=== PATIENT | male | born 1950 | race Hispanic/Latino ===

== ENCOUNTER 2016-06-11 06:15 | Emergency (ER) | payer BC ==
[2016-06-11 07:22] LABS: Basophils % (Auto) 0.5 % (0.0-1.8); Hematocrit 43.9 % (35.5-45.6); Hemoglobin 14.5 gm/dl (11.8-15.2); Mean Corpuscular HGB Conc 33 % (32-34); Mean Corpuscular Hemoglobin 29 pg (28-32); Mean Corpuscular Volume 89 fl (84-94); Platelet Count 133 K/mm3 (140-440); Red Blood Count 4.97 M/mm3 (3.65-5.03); Red Cell Distribution Width 13.7 % (13.2-15.2); White Blood Count 8.2 K/mm3 (4.5-11.0)
[2016-06-11 07:40] LABS: Anion Gap 19 mmol/L; BUN/Creatinine Ratio 21.66; Blood Urea Nitrogen 26 mg/dL (9-20); Carbon Dioxide 25 mmol/L (22-30); Chloride 95.6 mmol/L (98-107); Glucose 109 mg/dL (75-100); Potassium 4.6 mmol/L (3.6-5.0); Sodium 135 mmol/L (137-145)
[2016-06-11 09:22] VITALS: BP 135/84
[2016-06-11] MEDS ORDERED: TESSALON PERLES PO ONE (10:16)
[2016-06-11] MEDS ORDERED: MUCINEX ER PO ONE (10:16)
[2016-06-11] MEDS ORDERED: DUONEB 0.5 MG-3 MG/3 ML SOLN IH ONE (10:16)
--- NOTE | 2016-06-11 10:39 | XRay Report ---
CHEST ONE VIEW INDICATION: Chest pain. COMPARISON: 06/02/2015. FINDINGS: Portable, single, frontal chest radiograph demonstrates less exaggerated/normal cardiomediastinal silhouette. Somewhat prominent bronchovascular markings centrally. Otherwise clear lungs. Unremarkable bones. CONCLUSION: No acute disease in the chest. Thank you for the opportunity to participate in this patient's care.
--- NOTE | 2016-06-11 10:40 | Emergency Department Report ---
HPI - General Chief Complaint: Chest Pain Time Seen by Provider: 06/11/16 10:12 - HPI HPI: The patient is a 66-year-old male who presents for evaluation of cough and ill FEELING. The patient reports progressive nonproductive cough for the past 2 days, associated with dyspnea for the past one day, severe, exacerbated with lying flat or exertion. The patient has also experienced mild to moderate generalized myalgias and arthralgias, sore aching in quality, also for the past one to 2 days. The patient denies fever, hemoptysis, syncope, pressure-like chest pain, stridor, drooling, dysphonia, hoarseness of voice, abdominal pain. ED Past Medical Hx - Past Medical History Hx Hypertension: Yes Hx Heart Attack/AMI: Yes (1985) Hx Arthritis: Yes (bilat knees) Additional medical history: high cholsesterol - Surgical History Past Surgical History?: Yes Additional Surgical History: Left knee surgery - Social History Smoking Status: Former Smoker Substance Use Type: None - Medications Home Medications: Home Medications Medication Instructions Recorded Confirmed Last Taken Type Aspirin [Adult Low Dose Aspirin EC] 81 mg PO QDAY 06/02/15 06/11/16 11/26/15 09: 00 History Benazepril HCl [Lotensin] 40 mg PO DAILY 06/02/15 06/11/16 11/30/15 05:30 History Ibuprofen [Motrin 200 MG tab] 800 mg PO QAM 06/02/15 06/11/16 11/26/15 09:00 History Lovastatin [Altoprev] 40 mg PO QPM 06/02/15 06/11/16 11/29/15 22:00 History Metoprolol Xl [Metoprolol 100 mg PO QDAY #30 tablet 06/03/15 06/11/16 11/30/15 05:30 Rx SUCCINATE ER TAB] Chlorthalidone 25 mg PO QDAY 07/06/15 06/11/16 11/29/15 22:00 History Flecainide Acetate 50 mg PO BID 07/06/15 06/11/16 11/29/15 22:00 History ALBUTEROL Inhaler [ProAir HFA 2 puff IH QID PRN #1 inhalation 06/11/16 Unknown Rx Inhaler] Ibuprofen [Motrin] 800 mg PO Q8HR PRN #14 tablet 06/11/16 Unknown Rx Oseltamivir [Tamiflu] 75 mg PO BID #10 cap 06/11/16 Unknown Rx Promethazine /Codeine 5 ml PO Q6H PRN #120 ml 06/11/16 Unknown Rx [Phenergan/Codeine 6.25-10 mg/5Ml] ED Review of Systems ROS: Stated complaint: COUGH/WHEEZING Other details as noted in HPI Constitutional: denies: fever ENT: denies: throat or neck pain Respiratory: reports cough, shortness of breath Cardiovascular: denies: chest pain Endocrine: denies unexplained weight loss or gain Gastrointestinal: denies: abdominal pain, nausea Genitourinary: denies: dysuria Musculoskeletal: denies: leg swelling Skin: denies: rash Neurological: denies: headache Hematological/Lymphatic: denies: easy bleeding or easy bruising Psych: denies sadness or hopelessness Physical Exam - Physical Exam Vital Signs: Vital Signs 06/11/16 06/11/16 06/11/16 06:41 09:21 10:01 Temperature 100.6 F H 98.6 F Pulse Rate 79 78 Pulse Rate [ Anterior Bilateral Throughout] Respiratory 20 20 20 Rate Respiratory Rate [Anterior Bilateral Throughout] Blood Pressure 144/100 135/84 [Right] O2 Sat by Pulse 97 96 Oximetry 06/11/16 10:33 Temperature Pulse Rate Pulse Rate [ 80 Anterior Bilateral Throughout] Respiratory Rate Respiratory 16 Rate [Anterior Bilateral Throughout] Blood Pressure [Right] O2 Sat by Pulse Oximetry Physical Exam: General: well-nourished, well-developed, no acute distress Head: Normocephalic, atraumatic Eyes: normal sclera ENT: Mucous membranes are pink and moist Neck: trachea midline, neck supple, No neck stiffness, no cervical adenopathy Respiratory: Mildly diminished end-expiratory breath sounds and wheezing present , no costal retractions, no respiratory distress Cardio: S1 and S2 present, no murmurs, rubs, gallops, capillary refill is brisk Abdomen: Normoactive bowel sounds, soft abdomen, no rigidity, no guarding or rebound tenderness Musc: No pitting edema Skin: No rash Neuro: no facial drooping, normal speech Psych: Normal affect ED Course Vital Signs 06/11/16 06/11/16 06/11/16 06:41 09:21 10:01 Temperature 100.6 F H 98.6 F Pulse Rate 79 78 Pulse Rate [ Anterior Bilateral Throughout] Respiratory 20 20 20 Rate Respiratory Rate [Anterior Bilateral Throughout] Blood Pressure 144/100 135/84 [Right] O2 Sat by Pulse 97 96 Oximetry 06/11/16 10:33 Temperature Pulse Rate Pulse Rate [ 80 Anterior Bilateral Throughout] Respiratory Rate Respiratory 16 Rate [Anterior Bilateral Throughout] Blood Pressure [Right] O2 Sat by Pulse Oximetry ED Medical Decision Making - Lab Data Result diagrams: 06/11/16 07:09 06/11/16 07:09 - Medical Decision Making The patient was seen and examined by myself. The patient is placed on a cardiac cath lab manager and continuous pulse ox. On initial evaluation, the patient was found to be in no distress. Evaluation orders were placed. EKG was negative for findings suggestive of acute cardiac infarct. The patient is given Tessalon Perles for their cough, Tylenol for fever and pain, and Mucinex for nasal congestion. The patient is given a DuoNeb breathing treatment for his shortness of breath and wheezing. Lab results revealed a positive influenza screen and otherwise labs were not concerning. The patient is given a prescription for Tamiflu. Chest x-ray is negative for pulmonary vessel congestion, pleural effusion, focal consolidation , or other acute cardio pulmonary disease process. The patient was reevaluated and reported that their symptoms were markedly improved. On reexamination the patient is found to have normal respiratory rate and O2 sat on pulse oximetry, with no costal retractions or diminishment of breath sounds on auscultation. The patient is stable for discharge with outpatient follow-up. The patient is given follow-up and return instructions. The patient expressed understanding and agreed with the plan. The patient is discharged in stable condition. Critical care attestation.: If time is entered above; I have spent that time in minutes in the direct care of this critically ill patient, excluding procedure time. ED Disposition Clinical Impression: Acute viral syndrome, Acute bronchospasm due to viral infection, Influenza A, Fever in adult, Myalgia Disposition: DISCHARGED TO HOME OR SELFCARE Is pt being admited?: No Does the pt Need Aspirin: No Condition: Stable Instructions: Acute Bronchitis (ED), Influenza (ED), Viral Syndrome (ED), Costochondritis (ED) Referrals: PRIMARY CARE, [Primary Care Provider] - 3-5 Days Time of Disposition: 11:29
[2016-06-11] MEDS ORDERED: TYLENOL PO ONE (10:55)
== END 2016-06-11 12:13 | disposition home or self-care (01) ==
LOC: ED 06:15
DX: J98.01 Acute bronchospasm (principal); B34.9 Viral infection, unspecified; J09.X2 Influenza due to identified novel influenza A virus with other respiratory manifestations; R50.9 Fever, unspecified; M79.1 Myalgia; I10 Essential (primary) hypertension; I25.2 Old myocardial infarction; M19.90 Unspecified osteoarthritis, unspecified site; E78.00 Pure hypercholesterolemia, unspecified; Z87.891 Personal history of nicotine dependence; Z79.82 Long term (current) use of aspirin
CPT/HCPCS: 36415; 71010; 80048; 83880; 84484; 85025; 87400; 93005; 93010; 94640